=== PATIENT | female | born 1980 | race Native Hawaiian/Other Pacific Islander ===

== ENCOUNTER 2019-05-07 23:31 | Emergency (ER) | payer OTHER ==
[~2019-05-07] VITALS: Ht 154.9 cm; Wt 77.1 kg
[2019-05-08 00:13] LABS: PLATELET COUNT 302 K/uL (152-353)
[2019-05-08 00:23] LABS: POTASSIUM 2.7 mmol/L (3.6-5.2)
[2019-05-08 01:34] VITALS: BP 174/79; TEMP 98.4
[2019-05-08] MEDS ORDERED: CETIRIZINE10 MG PO (02:42)
[2019-05-08] MEDS ORDERED: DOXEPIN PO (02:44)
[2019-05-08] MEDS ORDERED: FLUTICASONE INH (02:47)
[2019-05-08] MEDS ORDERED: HYDROXYZINE HYD50 MG PO (02:49)
[2019-05-08] MEDS ORDERED: QUET150T PO (02:55)
[2019-05-08] MEDS ORDERED: SERTRALINE PO (03:16)
[2019-05-08] MEDS ORDERED: TIZANIDINE HYDRO4 MG PO (03:21)
[2019-05-08] MEDS ORDERED: ACIDOPHILU6 PO (03:24)
[2019-05-08] MEDS ORDERED: MECLIZINE25 MG PO (03:27)
[2019-05-08] MEDS ORDERED: NAPROSYN500 MG PO (03:29)
[2019-05-08] MEDS ORDERED: POTASSIUM CHLORIDE (03:32)
[2019-05-08] MEDS ORDERED: PROM25IN5 INJ (03:34)
[2019-05-08] MEDS ORDERED: CARBAMAZEPIN400 MG PO (03:42)
[2019-05-08] MEDS ORDERED: SMZ-TMP DS1 TAB PO (03:46)
== END 2019-05-08 01:35 | disposition other institution (70) ==
LOC: EDBD 23:31 → ED 23:31
PROVIDERS: Family Medicine
DX: F32.89 Other specified depressive episodes (principal); R45.851 Suicidal ideations; E87.6 Hypokalemia; R00.0 Tachycardia, unspecified; I45.81 Long QT syndrome; Z04.6 Encounter for general psychiatric examination, requested by authority
CPT/HCPCS: 36415; 80053; 85027; 93005; 99285